=== PATIENT | female | born 1955 | race African-American/Black ===

== ENCOUNTER 2018-04-03 15:56 | Emergency (ER) | payer OTHER ==
--- NOTE | 2018-04-03 16:19 | PDOC ---
Rapid Medical Evaluation Time Seen by Provider: 04/03/18 16:16 Medical Evaluation: Allergies Allergy/AdvReac Type Severity Reaction Status Date / Time No Known Allergies Allergy Unverified 03/02/12 12:10 04/03/18 16:17 I have performed a brief in-person evaluation of this patient. The patient presents with a chief complaint of: L ankle pain after slipping last night (did not fall to the ground) Pertinent physical exam findings: Fully weight bearing on L LE I have ordered the following: x-ray L ankle The patient will proceed to the ED for further evaluation. Discharge Disposition - Diagnosis Ankle pain, left - Referrals - Patient Instructions - Post Discharge Activity
[2018-04-03 16:20] VITALS: BP 155/90; PULSE 84; TEMP 98.2; BMI 24.7
--- NOTE | 2018-04-03 16:59 | PDOC ---
History of Present Illness - General Chief Complaint: Injury Stated Complaint: SPRAIN ANKLE Time Seen by Provider: 04/03/18 16:16 History Source: Patient Exam Limitations: No Limitations - History of Present Illness Initial Comments: 04/03/18 16:54 HISTORY OF PRESENT ILLNESS: This is 63-year-old woman past medical history of hypertension presents emergency department for evaluation of left ankle pain status post inversion of the foot injury on . Patient states she was stepping into a taxi when she slipped off the curb causing her left foot to invert. Patient states she did not fall to the ground as she was able to catch herself on the taxi. Patient reported she was unable to bear weight initially but is time is progressed she is now currently able to bear weight. No recent travel or sick contacts. PAST MEDICAL HISTORY: see HPI SURGICAL HISTORY: Denies ALLERGIES: No known drug allergies REVIEW OF SYSTEMS General/Constitutional: Denies fever or chills. Denies weakness, weight change. HEENT: Denies change in vision. Denies ear pain or discharge. Denies sore throat. Cardiovascular: Denies chest pain or shortness of breath. Respiratory: Denies cough, wheezing, or hemoptysis. Gastrointestinal: Denies nausea, vomiting, diarrhea or constipation. Denies rectal bleeding. Genitourinary: Denies dysuria, frequency, or change in urination. Musculoskeletal: Left ankle pain. Denies neck or back pain. Skin and breasts: Denies rash or easy bruising. Neurologic: Denies headache, vertigo, loss of consciousness, or loss of sensation. Psychiatric: Denies depression or anxiety. Endocrine: Denies increased thirst. Denies abnormal weight change. Hematologic/Lymphatic: Denies anemia, easy bleeding, or history of blood clots. Allergic/Immunologic: Denies hives or skin allergy. Denies latex allergy. PHYSICAL EXAM General Appearance: Well-appearing, appropriately dressed. No apparent distress , no intoxication. Respiratory/Chest: Lungs CTAB. No shortness of breath, chest tenderness, respiratory distress, accessory muscle use. No crackles, rales, rhonchi, stridor , wheezing, dullness Cardiovascular: RRR. S1, S2. No JVD, murmur, bradycardia, tachycardia. Vascular Pulses: Dorsalis-Pedis (R): 2+, Dorsalis-Pedis (L): 2+ Musculoskeletal/Extremities: Normal inspection. FROM of all extremities, normal capillary refill. Pelvis Stable. No CVA tenderness. No tenderness to extremities, pedal edema, swelling, erythema or deformity. TTP Left medial ankle. No bony tenderness. Integumentary: Appropriate color, dry, warm. No cyanosis, erythema, jaundice or rash Neurologic: licensed architect II-XII intact. Fully oriented, alert. Appropriate mood/affect. Motor strength 5/5. No appreciable EOM palsy, facial droop or sensory deficit. Past History - Past Medical History Allergies/Adverse Reactions: Allergies Allergy/AdvReac Type Severity Reaction Status Date / Time No Known Allergies Allergy Verified 04/03/18 16:17 Home Medications: Ambulatory Orders Lisinopril [Prinivil] 20 mg PO DAILY 04/03/18 COPD: No HTN: Yes - Suicide/Smoking/Psychosocial Hx Smoking History: Unknown if ever smoked *Physical Exam - Vital Signs Last Vital Signs Temp Pulse Resp BP Pulse Ox 98.2 F 84 20 155/90 98 04/03/18 16:18 04/03/18 16:18 04/03/18 16:18 04/03/18 16:18 04/03/18 16:18 Moderate Sedation - Procedure Monitoring Vital Signs: Procedure Monitoring Vital Signs Temperature 98.2 F 04/03/18 16:18 Pulse Rate 84 04/03/18 16:18 Respiratory Rate 20 04/03/18 16:18 Blood Pressure 155/90 04/03/18 16:18 O2 Sat by Pulse Oximetry (%) 98 04/03/18 16:18 Medical Decision Making - Medical Decision Making 04/03/18 16:54 A/P: 63-year-old woman with left ankle sprain X-rays as read by me: No acute fractures or dislocations present. Jason wrap [employer] Discharge home with orthopedic follow-up as needed. I discussed the physical exam findings, ancillary test results and final diagnoses with the patient. I answered all of the patient's questions. The patient was satisfied with the care received and felt comfortable with the discharge plan and treatment plan. The patient will call their primary care physician within 24 hours to arrange follow-up and will return to the Emergency Department with any new, persistent or worsening symptoms. *DC/Admit/Observation/Transfer Diagnosis at time of Disposition: Left ankle sprain Qualifiers: Encounter type: initial encounter Involved ligament of ankle: unspecified ligament Qualified Code(s): S93.402A - Sprain of unspecified ligament of left ankle, initial encounter - Discharge Dispostion Disposition: HOME Condition at time of disposition: Stable Decision to Admit order: No - Referrals Referrals: Titi Tejeda DO [Staff Physician] - - Patient Instructions Additional Instructions: Take Tylenol or Motrin as needed for pain. Follow manufacturers instructions for appropriate dosage. Try not to walk or bear weight on your left ankle as much as possible for the next 3 days. Apply ice for 20 minutes and removed for at least 20 minutes before reapplying the ice. Keep Jason wrap on your ankle as much as possible to help decrease some of the swelling control pain. Whenever possible keep your foot elevated to decrease swelling to your ankle. You've been given the number for an orthopedist. If symptoms do not resolve within the next 7 days call the orthopedist for further evaluation. Return to emergency department for discoloration of the foot, numbness or tingling to the foot, worsening pain, or any other concerns. Thank you very much for choosing us to provide your emergent healthcare needs. - Post Discharge Activity Forms/Work/School Notes: Back to Work
== END 2018-04-03 17:02 | disposition home or self-care (01) ==
LOC: JERFT 15:56
DX: M25.572 Pain in left ankle and joints of left foot (principal); I10 Essential (primary) hypertension; S93.402A Sprain of unspecified ligament of left ankle, initial encounter; W22.8XXA Striking against or struck by other objects, initial encounter; Y93.89 Activity, other specified; Y92.89 Other specified places as the place of occurrence of the external cause
CPT/HCPCS: 73610-TC-LT-FY; 99281-25